=== PATIENT | male | born 1960 | race Caucasian/White ===

== ENCOUNTER 2019-08-20 12:14 | Emergency (ER) | payer OTHER ==
[~2019-08-20] VITALS: Ht 195.6 cm; Wt 113.6 kg
[2019-08-20 12:27] VITALS: TEMP 98
[2019-08-20] MEDS ORDERED: DOXYCYCLINE 10100 MG PO (17:11)
[2019-08-20 17:15] VITALS: BP 135/82; PULSE 65
[2019-08-22] MEDS ORDERED: DOXYCYCLINE 10100 MG PO (10:13)
== END 2019-08-20 17:25 | disposition home or self-care (01) ==
LOC: COL.ER 12:14
DX: S61.402A Unspecified open wound of left hand, initial encounter (principal); L03.114 Cellulitis of left upper limb; Z79.84 Long term (current) use of oral hypoglycemic drugs; Z95.5 Presence of coronary angioplasty implant and graft; Z23 Encounter for immunization; X58.XXXA Exposure to other specified factors, initial encounter; Y92.009 Unspecified place in unspecified non-institutional (private) residence as the place of occurrence of the external cause

== ENCOUNTER 2019-10-15 10:33 | Emergency (ER) | payer OTHER ==
[~2019-10-15] VITALS: Ht 195.6 cm; Wt 115.0 kg
[~2019-10-15 10:33] MED LIST: DOXYCYCLINE 10100 MG PO
[2019-10-15 10:55] VITALS: TEMP 97.8
[2019-10-15] MEDS ORDERED: GLUCOPHAGE1000 MG PO (11:07)
[2019-10-15] MEDS ORDERED: DIABETA 5MG5 MG/TAB (11:08)
[2019-10-15] MEDS ORDERED: ASPIRIN 81M81 MG/TA2 PO (11:10)
[2019-10-15] MEDS ORDERED: XARELTO2.5 MG (11:10)
[2019-10-15] MEDS ORDERED: ULTRAM 50MG TAB50 MG PO (12:48)
[2019-10-15 12:55] VITALS: BP 141/83; PULSE 62
== END 2019-10-15 12:55 | disposition home or self-care (01) ==
LOC: COL.ER 10:33
DX: M17.12 Unilateral primary osteoarthritis, left knee (principal); E11.9 Type 2 diabetes mellitus without complications; Z79.01 Long term (current) use of anticoagulants; Z79.82 Long term (current) use of aspirin; Z79.84 Long term (current) use of oral hypoglycemic drugs

== ENCOUNTER 2020-02-27 21:03 | Emergency (ER) | payer OTHER ==
[~2020-02-27] VITALS: Ht 195.6 cm; Wt 113.6 kg
[~2020-02-27 21:03] MED LIST changes: +ASPIRIN 81M81 MG/TA2 PO; +DIABETA 5MG5 MG/TAB; +GLUCOPHAGE1000 MG PO; +ULTRAM 50MG TAB50 MG PO; +XARELTO2.5 MG
[2020-02-27 21:39] VITALS: TEMP 97.7
[2020-02-27 23:19] LABS: COLLECTION METHOD CLEAN CATCH
[2020-02-27 23:22] LABS: BASO # 0.1 (0.0-0.2); BASO % 0.4 % (0.0-2.0); EOS # 0.1 (0.0-0.7); EOS % 0.6 % (0-4.0); GRAN # 11.7 (1.4-6.5); GRAN % 85.3 % (42.2-75.2); HEMATOCRIT 41.3 % (42.0-52.0); HEMOGLOBIN 13.2 g/dl (13.5-18.0); LYMPH # 0.9 (1.2-3.4); LYMPH % 6.8 % (20.0-51.0); MEAN CELL VOLUME 87 fl (80.0-100.0); MEAN CORPUSCULAR HEMOGLOBIN 28 pg (27.0-31.0); MEAN CORPUSCULAR HGB CONC 32 g/dl (33.0-37.0); MEAN PLATELET VOLUME 10.6 fl (7.4-10.4); MONO # 0.9 (0.1-0.6); MONO % 6.3 % (1.7-9.3); PLATELET COUNT 269 K/mm3 (130-400); RED BLOOD COUNT 4.76 M/mm3 (4.20-5.60); REDCELL DISTRIBUTION WIDTH-CV 15.2 % (11.5-14.5)
[2020-02-27 23:29] LABS: MUCOUS Present /lpf; PH 5 (5-8); SQUAMOUS EPITHELIAL 0-2 /hpf; URINE APPEARANCE Clear; URINE BACTERIA None Seen /hpf; URINE BILIRUBIN Negative (NEGATIVE); URINE BLOOD 3+ (NEGATIVE); URINE COLOR Yellow; URINE GLUCOSE 3+ (NEGATIVE); URINE KETONE 1+ (NEGATIVE); URINE LEUKOCYTE ESTERASE Negative (NEGATIVE); URINE NITRATE Negative (NEGATIVE); URINE PROTEIN(semi-quant) Negative (NEGATIVE); URINE RBC >50 /hpf; URINE UROBILINOGEN Negative (NEGATIVE)
[2020-02-27 23:41] LABS: ALBUMIN 4.3 gm/dL (3.5-5.0); BILIRUBIN,TOTAL 0.6 mg/dL (0.0-1.0); CALCIUM 9.9 mg/dL (8.4-10.2); CREATININE, serum 1.03 (0.66-1.25); POTASSIUM 4.4 mmol/L (3.4-5.0); TOTAL PROTEIN 7.2 gm/dL (6.4-8.2)
[2020-02-28] MEDS ORDERED: CIPRO 500MG TA500 MG PO (01:54)
[2020-02-28 02:28] VITALS: BP 175/85; PULSE 75
== END 2020-02-28 02:28 | disposition home or self-care (01) ==
LOC: COL.ER 21:03
PROVIDERS: Emergency Medicine
DX: K65.4 Sclerosing mesenteritis (principal); I25.10 Atherosclerotic heart disease of native coronary artery without angina pectoris; Z88.8 Allergy status to other drugs, medicaments and biological substances; Z79.82 Long term (current) use of aspirin; Z79.84 Long term (current) use of oral hypoglycemic drugs
CPT/HCPCS: J1170; J7030; Q9967